=== PATIENT | female | born 1950 | race Native Hawaiian/Other Pacific Islander ===

== ENCOUNTER 2017-02-06 06:03 | Observation (INO) | payer OTHER ==
[~2017-02-06] VITALS: Ht 167.6 cm; Wt 90.0 kg
[2017-02-06 06:16] VITALS: BP 147/56; TEMP 97.7
[2017-02-06 06:55] LABS: PLATELET COUNT 200 K/uL (152-353)
[2017-02-06 07:05] LABS: POTASSIUM 4.1 mmol/L (3.6-5.2); SODIUM 139 mmol/L (136-145)
[2017-02-06 07:07] LABS: PARTIAL THROMBOPLASTIN TIME 26.6 SECONDS (24.5-33.6)
[2017-02-06 07:15] VITALS: BP 126/56
[2017-02-06 08:18] VITALS: BP 126/56
[2017-02-06] MEDS ORDERED: ELIQUIS5 MG OR (08:44)
[2017-02-06] MEDS ORDERED: LISI5TAB10 PO (08:45)
[2017-02-06] MEDS ORDERED: ASPIRIN 8181 MG PO (08:45)
[2017-02-06] MEDS ORDERED: PROZAC10 MG PO (08:45)
[2017-02-06] MEDS ORDERED: NITROSTAT0.4 MG SL (08:46)
[2017-02-06] MEDS ORDERED: PRAVACHOL20 MG PO (08:46)
[2017-02-06] MEDS ORDERED: BRILINTA90 MG OR (08:47)
[2017-02-06] MEDS ORDERED: SOTA80TA2 PO (08:47)
[2017-02-06] MEDS ORDERED: HYDR25TA60 PO (08:48)
[2017-02-06] MEDS ORDERED: ACID CONTROL20 MG OR (08:48)
[2017-02-06 11:35] VITALS: BP 130/53; TEMP 97.5; Ht 167.6 cm; Wt 90.0 kg
== END 2017-02-06 13:48 | disposition short-term general hospital (02) ==
LOC: ED 06:03 → MED/SURG 08:57
PROVIDERS: ADMIT Specialist
DX: R07.89 Other chest pain (principal); R42 Dizziness and giddiness; R11.2 Nausea with vomiting, unspecified; R53.1 Weakness
CPT/HCPCS: 36415; 80053; 82550; 84484; 85027; 85610; 85730; 93005; 96360; 96374; 99220; 99284; G0378; J2405; J3411; J3475; J3490

== ENCOUNTER 2017-02-06 13:52 | Outpatient (CLI) | payer OTHER ==
[~2017-02-06 13:52] MED LIST: ACID CONTROL20 MG OR; ASPIRIN 8181 MG PO; BRILINTA90 MG OR; ELIQUIS5 MG OR; HYDR25TA60 PO; LISI5TAB10 PO; NITROSTAT0.4 MG SL; PRAVACHOL20 MG PO; PROZAC10 MG PO; SOTA80TA2 PO
== END 2017-02-06 14:25 | disposition short-term general hospital (02) ==
LOC: AMB 13:52
DX: R07.89 Other chest pain (principal); R42 Dizziness and giddiness; R11.2 Nausea with vomiting, unspecified; R53.1 Weakness
CPT/HCPCS: A0425; A0427